=== PATIENT | male | born 1970 | race Caucasian/White ===

== ENCOUNTER 2017-07-12 10:13 | Emergency (ER) | payer SELFPAY ==
[~2017-07-12] VITALS: Ht 182.9 cm; Wt 88.0 kg
[2017-07-12 10:21] VITALS: BP 128/78; PULSE 90; RESP 18; TEMP 98.6; O2SAT 99
[2017-07-12] MEDS ORDERED: SODIUM CHLOR 0.9% 1000 ML INJ 1,000 ML IV ONE (10:37)
--- NOTE | 2017-07-12 10:41 | PD ---
HPI Chief Complaint: Syncope/Near-Syncope Time Seen by Provider: 10:37 Travel History International Travel<30 days: No Contact w/Intl Traveler<30days: No Traveled to known affect area: No History of Present Illness HPI Patient presents with complaints of general malaise and fever since Thursday. States he thinks he has the flu. Reports this morning that he was experiencing some chills while laying in bed. Got up to move to the sofa and had a syncopal episode. States he woke up on the floor. Denies any head pain or neck pain. States she's been taking fluids well. Denies flu shot this year. Denies any new chest pain shortness of breath urinary or bowel symptoms. Denies any nausea vomiting or diarrhea. No past medical history or prescription medications. [facility] Social History Alcohol Use: Yes Tobacco Use: Yes Substance Use: No Allergies-Medications (Allergen,Severity, Reaction): Coded Allergies: No Known Allergies (Verified Allergy, Unknown, 07/12/17) Reported Meds & Prescriptions Reported Meds & Active Scripts Active No Active Prescriptions or Reported Medications Review of Systems General / Constitutional: Positive: Fever Eyes: No: Visual changes HENT: No: Headaches Cardiovascular: No: Chest Pain or Discomfort Respiratory: Positive: Cough, No: Shortness of Breath Gastrointestinal: No: Abdominal Pain Genitourinary: No: Dysuria Musculoskeletal: No: Pain Skin: No Rash Neurologic: No: Weakness Psychiatric: No: Depression Endocrine: No: Polydipsia Hematologic/Lymphatic: No: Easy Bruising Physical Exam Narrative GENERAL: Well-nourished, well-developed patient. SKIN: Focused skin assessment warm/dry. HEAD: Normocephalic. EYES: No scleral icterus. No injection or drainage. NECK: Supple, trachea midline. No JVD or lymphadenopathy. CARDIOVASCULAR: Regular rate and rhythm without murmurs, gallops, or rubs. RESPIRATORY: Breath sounds equal bilaterally. No accessory muscle use. GASTROINTESTINAL: Abdomen soft, non-tender, nondistended. MUSCULOSKELETAL: No cyanosis, or edema. BACK: Nontender without obvious deformity. No CVA tenderness. Data Data Last Documented VS Vital Signs Date Time Temp Pulse Resp B/P (MAP) Pulse Ox O2 Delivery O2 Flow Rate FiO2 07/12/17 11:18 93 20 119/82 (94) 93 22 125/76 (92) 92 20 124/80 (95) 07/12/17 10:53 96 07/12/17 10:21 98.6 Orders Orders Electrocardiogram (07/12/17 10:37) Complete Blood Count With Diff (07/12/17 10:37) Comprehensive Metabolic Panel (07/12/17 10:37) Ckmb (Isoenzyme) Profile (07/12/17 10:37) Troponin I (07/12/17 10:37) Urinalysis - C+S If Indicated (07/12/17 10:37) Chest, Single Ap (07/12/17 10:37) Ct Brain W/O Iv Contrast(Rout) (07/12/17 10:37) Ecg Monitoring (07/12/17 10:37) Iv Access Insert/Monitor (07/12/17 10:37) Oximetry (07/12/17 10:37) Sodium Chloride 0.9% Flush (Ns Flush) (07/12/17 10:45) Sodium Chlor 0.9% 1000 Ml Inj (Ns 1000 M (07/12/17 10:37) Orthostatic Vital Signs (07/12/17 10:37) Influenzae A/B Antigen (07/12/17 10:37) CKMB (07/12/17 10:45) CKMB% (07/12/17 10:45) Labs Laboratory Tests Test 07/12/17 10:45 07/12/17 12:00 White Blood Count 5.3 TH/MM3 Red Blood Count 4.60 MIL/MM3 Hemoglobin 14.5 GM/DL Hematocrit 42.7 % Mean Corpuscular Volume 92.8 FL Mean Corpuscular Hemoglobin 31.6 PG Mean Corpuscular Hemoglobin Concent 34.0 % Red Cell Distribution Width 13.4 % Platelet Count 177 TH/MM3 Mean Platelet Volume 7.8 FL Neutrophils (%) (Auto) 66.3 % Lymphocytes (%) (Auto) 20.5 % Monocytes (%) (Auto) 11.8 % Eosinophils (%) (Auto) 0.8 % Basophils (%) (Auto) 0.6 % Neutrophils # (Auto) 3.6 TH/MM3 Lymphocytes # (Auto) 1.1 TH/MM3 Monocytes # (Auto) 0.6 TH/MM3 Eosinophils # (Auto) 0.0 TH/MM3 Basophils # (Auto) 0.0 TH/MM3 CBC Comment DIFF FINAL Differential Comment Blood Urea Nitrogen 8 MG/DL Creatinine 0.93 MG/DL Random Glucose 96 MG/DL Total Protein 7.9 GM/DL Albumin 3.7 GM/DL Calcium Level 8.7 MG/DL Alkaline Phosphatase 63 U/L Aspartate Amino Transf (AST/SGOT) 27 U/L Alanine Aminotransferase (ALT/SGPT) 29 U/L Total Bilirubin 0.4 MG/DL Sodium Level 135 MEQ/L Potassium Level 4.0 MEQ/L Chloride Level 100 MEQ/L Carbon Dioxide Level 25.8 MEQ/L Anion Gap 9 MEQ/L Estimat Glomerular Filtration Rate 86 ML/MIN Total Creatine Kinase 286 U/L Creatine Kinase MB 0.9 NG/ML Troponin I LESS THAN 0.02 NG/ML Urine Collection Type CLEAN CATCH Urine Color YELLOW Urine Turbidity CLEAR Urine pH 8.0 Urine Specific [place] 1.017 Urine Protein NEG mg/dL Urine Glucose (UA) NEG mg/dL Urine Ketones NEG mg/dL Urine Occult Blood NEG Urine Nitrite NEG Urine Bilirubin NEG Urine Leukocyte Esterase NEG Urine RBC 0-3 /hpf Urine Squamous Epithelial Cells 0-5 /hpf Microscopic Urinalysis Comment CULT NOT INDICATED Urine Collection Time 12:00 [facility] Medical Decision Making Medical Screen Exam Complete: Yes Emergency Medical Condition: Yes Differential Diagnosis Influenza, syncope, dehydration, hypotension Narrative Course Assessment and plan discussed with patient and at bedside. EKG reveals sinus rhythm rate of 87. Labs within normal limits, cardiac enzymes negative. CT of the head revealed no acute intracranial process. Chest x-ray reveals old trauma to the left chest which patient confirms. No acute cardiopulmonary process. Diagnosis Primary Impression: Upper respiratory infection Qualified Codes: J06.9 - Acute upper respiratory infection, unspecified Additional Impression: Syncope Qualified Codes: R55 - Syncope and collapse Patient Instructions: General Instructions Additional Instructions: Rest fluids and Motrin, encouraged increased hydration. Encouraged frequent handwashing, consider vitamin C and zinc to boost immune system, follow-up with PCP. Return to emergency with any onset of new symptoms. Med/Other Pt SpecificInfo: Prescription(s) given Scripts Guaifenesin-Codeine Liq (Cheratussin AC Liq) 100-10 Mg/5 Ml Syrp 10 ML PO Q6HR Y for COUGH AND COLD SYMPTOMS, #120 ML 0 Refills Do not exceed 6 doses/24 hrs. Prov: José Johnson MD 07/12/17 Azithromycin (Zithromax) 500 Mg Tab 500 MG PO DAILY for Infection for 7 Days, #7 TAB 0 Refills Prov: José Johnson MD 07/12/17 Disposition: 01 DISCHARGE HOME Condition: Good José Johnson MD Jul 12, 2017 10:41
[2017-07-12] MEDS ORDERED: SODIUM CHLORIDE 0.9% FLUSH 10 ML FLUSH IVF PRN (10:45)
[2017-07-12 10:53] VITALS: O2SAT 96
[2017-07-12 11:04] LABS: AUTOMATED NEUTROPHIL # 3.6 TH/MM3 (1.8-7.7); BASOPHIL % 0.6 % (0.0-2.0); CHLORIDE 100 MEQ/L (98-107); EOSINOPHIL % 0.8 % (0.0-4.0); HEMATOCRIT 42.7 % (39.0-51.0); HEMOGLOBIN 14.5 GM/DL (13.0-17.0); LYMPH % 20.5 % (9.0-44.0); LYMPHOCYTE # 1.1 TH/MM3 (1.0-4.8); MEAN CELL VOLUME 92.8 FL (80.0-100.0); MEAN CORPUSCULAR HEMOGLOBIN 31.6 PG (27.0-34.0); MEAN PLATELET VOLUME 7.8 FL (7.0-11.0); MONO % 11.8 % (0.0-8.0); MONOCYTE # 0.6 TH/MM3 (0-0.9); NEUT % 66.3 % (16.0-70.0); PLATELET COUNT 177 TH/MM3 (150-450); RED CELL DISTRIBUTION WIDTH 13.4 % (11.6-17.2); SODIUM (NA) 135 MEQ/L (136-145); WHITE BLOOD COUNT 5.3 TH/MM3 (4.0-11.0)
[2017-07-12 11:07] LABS: CALCIUM 8.7 MG/DL (8.5-10.1)
[2017-07-12 11:08] LABS: ALBUMIN 3.7 GM/DL (3.4-5.0); BICARBONATE 25.8 MEQ/L (21.0-32.0); BLOOD UREA NITROGEN 8 MG/DL (7-18); GLUCOSE,RANDOM 96 MG/DL (74-106)
[2017-07-12 11:11] LABS: ALT (GPT) 29 U/L (12-78); AST (GOT) 27 U/L (15-37); CREATININE 0.93 MG/DL (0.60-1.30); GLOMERULAR FILTRATION RATE 86 ML/MIN (>89)
[2017-07-12 11:12] LABS: TOTAL BILIRUBIN ADULT 0.4 MG/DL (0.2-1.0); TOTAL PROTEIN 7.9 GM/DL (6.4-8.2)
[2017-07-12 11:13] LABS: ALKALINE PHOSPHATASE 63 U/L (45-117)
[2017-07-12 11:15] LABS: TROPONIN I LESS THAN 0.02 NG/ML (0.02-0.05)
[2017-07-12 11:18] VITALS: BP_SYST 119; BP_SYST 124; BP_SYST 125; BP_DIAS 76; BP_DIAS 80; BP_DIAS 82; RESP 20; RESP 22
--- NOTE | 2017-07-12 11:25 | EKG ---
Date Performed: 07/12/2017 Time Performed: 10:48:09 PTAGE: 47 years EKG: Sinus rhythm ARM LEADS REVERSED ATYPICAL ECG NO PREVIOUS TRACING DOCTOR: Ryland Dooley Interpretating Date/Time 07/12/2017 11:24:58
--- NOTE | 2017-07-12 11:39 | RADRPT ---
EXAM DATE/TIME: 07/12/2017 11:02 [facility] COMPARISON: No previous studies available for comparison. INDICATIONS : Syncopal episode this morning and shortness of breath, cough for 4 days. MEDICAL HISTORY : None. SURGICAL HISTORY : None. ENCOUNTER: Initial ACUITY: 4 - 6 days PAIN SCORE: 0/10 LOCATION: Bilateral chest FINDINGS: The heart size is normal. There is increased density at the lateral left mid chest. There appears be some deformity of the ribs in this region. This could be from prior trauma. The lungs are otherwise c lear. CONCLUSION: Increased density at the lateral left mid chest. This could be from prior trauma in the appropriate h istory. If the patient does not have history of prior trauma, this area could be further evaluated wi th a CT examination. Sharif Singh MD on July 12, 2017 at 11:34 Board Certified Radiologist. This report was verified electronically.
--- NOTE | 2017-07-12 11:40 | RADRPT ---
EXAM DATE/TIME: 07/12/2017 11:08 [facility] COMPARISON: No previous studies available for comparison. INDICATIONS : Syncope. RADIATION DOSE: 57.34 CTDIvol (mGy) MEDICAL HISTORY : None SURGICAL HISTORY : None. ENCOUNTER: Initial ACUITY: 1 day PAIN SCALE: 0/10 LOCATION: cranial TECHNIQUE: Multiple contiguous axial images were obtained of the head. Using automated exposure control and adj ustment of the mA and/or kV according to patient size, radiation dose was kept as low as reasonably a chievable to obtain optimal diagnostic quality images. DICOM format image data is available electro nically for review and comparison. FINDINGS: CEREBRUM: The ventricles are normal for age. No evidence of midline shift, mass lesion, hemorrhage or acute in farction. No extra-axial fluid collections are seen. POSTERIOR FOSSA: The cerebellum and brainstem are intact. The 4th ventricle is midline. The cerebellopontine angle i s unremarkable. EXTRACRANIAL: The visualized portion of the orbits is intact. There is right maxillary sinus disease. SKULL: The calvaria is intact. No evidence of skull fracture. It appears the posterior arch of C1 is ununit ed. This is a common normal variant. CONCLUSION: No acute disease. Sharif Singh MD on July 12, 2017 at 11:37 Board Certified Radiologist. This report was verified electronically.
[2017-07-12 12:07] LABS: BILIRUBIN, URINE NEG (NEG); BLOOD, URINE NEG (NEG); GLUCOSE,URINE NEG (NEG); KETONE, URINE NEG (NEG); NITRITE,URINE NEG (NEG); URINE LEUKOCYTE ESTERASE NEG (NEG)
[2017-07-12 12:15] LABS: RBC, URINE 0-3 /hpf (0-3); SQUAMOUS EPITHELIAL CELL URINE 0-5 /hpf (0-5); URINE COLOR YELLOW (YELLW/STRAW)
[2017-07-12] MEDS ORDERED: CHERSYP2 PO (12:23)
[2017-07-12] MEDS ORDERED: ZITH500T PO (12:23)
== END 2017-07-12 12:38 | disposition home or self-care (01) ==
LOC: PHED 10:13
DX: J06.9 Acute upper respiratory infection, unspecified (principal); R55 Syncope and collapse; Z72.0 Tobacco use
CPT/HCPCS: 70450; 71045; 80053; 81001; 82550; 82552; 84484; 85025; 87804; 93005; 99285; J7030